=== PATIENT | female | born 1955 | race Caucasian/White ===

== ENCOUNTER 2022-10-18 13:14 | Emergency (ER) | payer OTHER, SELFPAY ==
--- NOTE | 2022-10-18 13:22 | ED.EAR ---
HPI - Ear Problem General Chief complaint: Ear Stated complaint: CLOGGED R EAR/CONGESITON/SINUS Time Seen by Provider: 10/18/22 13:56 Source: patient and RN notes reviewed Mode of arrival: ambulatory Limitations: no limitations History of Present Illness HPI Narrative: 67-year-old female presents concern for right ear fullness, feeling of it being clogged. She reports sinus congestion and drainage, cough. She reports she has been taking Mucinex DM. She reports history of having to have her ear flushed. She denies fever, aches, chills, sweats MD Complaint: ear pain Related Data Home Medications Medication Instructions Recorded Confirmed aspirin 81 mg tablet,delayed 81 mg PO DAILY 12/21/19 06/12/22 release loratadine 10 mg tablet (Claritin) 10 mg PO DAILY 12/21/19 06/12/22 Allergies Allergy/AdvReac Type Severity Reaction Status Date / Time No Known Allergies Allergy Verified 10/18/22 13:26 Review of Systems Review of Systems: CONSTITUTIONAL: Denies malaise, chills, sweats, or fever. EYES: Denies visual changes, redness, or discharge. ENT: Reports rhinorrhea, congestion. Denies sinus pain, and sore throat. Reports right ear pain CARDIOVASCULAR: Denies chest pain, palpitations, or edema. RESPIRATORY: Reports cough. Denies dyspnea. GASTROINTESTINAL: Denies abdominal pain, nausea, vomiting, diarrhea SKIN: Denies rash or itching. MUSCULOSKELETAL: Denies myalgia. NEUROLOGIC: Denies headache. All systems reviewed & are unremarkable except as noted in HPI and below PMFSH Past Medical History Medical History Essential hypertension History of colon polyps Hyperglycemia Hyperlipidemia Surgical History Surgical History History of appendectomy 1994 Hx of tonsillectomy 1963 Family History Family History Father Family history of cardiovascular disease Family history of Parkinson's disease Grandparent Cerebrovascular accident Mother Cerebrovascular accident Sibling Family history of malignant neoplasm Social History Social History Smoking status: Never smoker Second hand tobacco smoke exposure: No Alcohol intake: never Substance use: never Gender identity (if verbalized by the patient): Female Sexual Orientation (if Verbalized by the Patient): Straight or Heterosexual Spiritual care concerns: No Agree to blood products: Yes Comments At time of signature, agree with nursing past medical, surgical, social and family history. There is no relevant family history pertinent to the presenting complaint Exam Narrative: GENERAL: Well-appearing, well-nourished, and in no acute distress. HEAD: Normocephalic EYES: PERRLA, conjunctivae clear ENT: Nares clear, turbinates edematous, clear discharge. Mucous membranes moist. Left TM pearly moss with dull light reflex, right TM not visible due to excess cerumen; no tragal tenderness. Oropharynx not erythematous without lesions. Tonsils not enlarged and without exudate, no drooling, no hoarseness, no trismus, uvula midline. NECK: Supple. No lymphadenopathy CHEST: Clear to auscultation, breath sounds equal. No wheezing, rhonchi, rales, or stridor. No respiratory distress, speaks in full sentences. HEART: Regular rate and rhythm. No murmur heard. SKIN: Warm, dry, no rash. NEURO: Alert and oriented x3. PSYCH: Normal mood and affect Course Course Emergency Course: Patient is aware of diagnosis, understands and agrees to treatment plan. Anticipatory guidance given. Patient agrees to follow-up as directed and is aware of reasons to seek care at the emergency department. Portions of this record may have been created with voice recognition software Level of Care: Express Care Visit Vital Signs Vital signs: Review
[2022-10-18 13:29] VITALS: BP 168/78; PULSE 81; RESP 16; TEMP 37; O2SAT 99
== END 2022-10-18 14:08 | disposition home or self-care (01) ==
PROVIDERS: Emergency Provider Nurse Practitioner; PCP Family Medicine
DX: H61.21 Impacted cerumen, right ear (principal); Z79.82 Long term (current) use of aspirin; I10 Essential (primary) hypertension; E78.5 Hyperlipidemia, unspecified
CPT/HCPCS: 69210; 99212; G0463

== ENCOUNTER 2023-05-04 12:11 | Emergency (ER) | payer OTHER, SELFPAY ==
[2023-05-04 12:19] VITALS: BP 142/86; PULSE 75; RESP 16; TEMP 36.5; O2SAT 98
--- NOTE | 2023-05-04 12:33 | ED.URI ---
HPI - URI/Sore Throat General Chief Complaint: Upper Respiratory Infection Stated Complaint: sore throat,marlyn Time Seen by Provider: 05/04/23 12:27 Source: patient and RN notes reviewed Mode of arrival: ambulatory Limitations: no limitations History of Present Illness HPI Narrative: 67-year-old female presents concern for nasal congestion, postnasal drainage, sore throat. Reports she took Mucinex DM with some relief. Denies fever, aches, chills, sweats MD elicited complaint: cough and sore throat Related Data Home Medications Medication Instructions Recorded Confirmed aspirin 81 mg tablet,delayed 81 mg PO DAILY 12/21/19 05/04/23 release empagliflozin 10 mg tablet 10 mg PO DAILY 03/28/23 05/04/23 (Jardiance) Allergies Allergy/AdvReac Type Severity Reaction Status Date / Time No Known Allergies Allergy Verified 05/04/23 12:30 Review of Systems Review of Systems: CONSTITUTIONAL: Denies malaise, chills, sweats, or fever. EYES: Denies visual changes, redness, or discharge. ENT: Reports rhinorrhea, congestion, sore throat. Denies sinus pain, otalgia CARDIOVASCULAR: Denies chest pain, palpitations, or edema. RESPIRATORY: Reports mild cough. Denies dyspnea. GASTROINTESTINAL: Denies abdominal pain, nausea, vomiting, diarrhea SKIN: Denies rash or itching. MUSCULOSKELETAL: Denies myalgia. NEUROLOGIC: Denies headache. All systems reviewed & are unremarkable except as noted in HPI and below PMFSH Past Medical History Medical History (Updated 05/04/23 @ 12:34 by Lanny Arce NP) Chronic kidney disease Essential hypertension History of colon polyps Hyperglycemia Hyperlipidemia Mass in the abdomen Surgical History Surgical History History of appendectomy 1994 Hx of tonsillectomy 1963 Family History Family History Father Family history of cardiovascular disease Family history of Parkinson's disease Grandparent Cerebrovascular accident Mother Cerebrovascular accident Sibling Family history of malignant neoplasm Social History Social History Smoking status: Never smoker Second hand tobacco smoke exposure: No Alcohol intake: never Substance use: never Lack of Transportation: No Lack of Food: Never True Current Housing: I Have Housing Concerned About Future Housing: No Difficulty Paying Gas/Electric Bills: No Difficulty Paying for Meds: No Currently Unemployed: No Difficulty w/ Childcare or Family Care: No Living arrangements: with family Occupation/Education: retired Gender identity (if verbalized by the patient): Female Sexual Orientation (if Verbalized by the Patient): Straight or Heterosexual Spiritual care concerns: No Agree to blood products: Yes Comments At time of signature, agree with nursing past medical, surgical, social and family history. There is no relevant family history pertinent to the presenting complaint Exam Narrative: GENERAL: Well-appearing, well-nourished, and in no acute distress. HEAD: Normocephalic EYES: PERRLA, conjunctivae clear ENT: Nares clear, turbinates edematous and erythematous, clear discharge. Mucous membranes moist. TM pearly moss with dull light reflex bilaterally; no tragal tenderness. Oropharynx not erythematous without lesions. Tonsils not enlarged and without exudate, no drooling, no hoarseness, no trismus, uvula midline. NECK: Supple. No lymphadenopathy CHEST: Clear to auscultation, breath sounds equal. No wheezing, rhonchi, rales, or stridor. No respiratory distress, speaks in full sentences. HEART: Regular rate and rhythm. No murmur heard. SKIN: Warm, dry, no rash. NEURO: Alert and oriented x3. PSYCH: Normal mood and affect Course Course Emergency Course: Patient is aware of diagnosis, understands and agrees to treatment plan. Anti
== END 2023-05-04 12:37 | disposition home or self-care (01) ==
PROVIDERS: Emergency Provider Nurse Practitioner; PCP Family Medicine
DX: J06.9 Acute upper respiratory infection, unspecified (principal); I12.9 Hypertensive chronic kidney disease with stage 1 through stage 4 chronic kidney disease, or unspecified chronic kidney disease; N18.9 Chronic kidney disease, unspecified; E78.5 Hyperlipidemia, unspecified
CPT/HCPCS: 87081; 87880; 99213; G0463

== ENCOUNTER 2023-09-10 15:18 | Emergency (ER) | payer OTHER, SELFPAY ==
[2023-09-10 15:29] VITALS: BP 125/104; PULSE 95; RESP 16; TEMP 36.3; O2SAT 99
--- NOTE | 2023-09-10 15:42 | ED.URI ---
HPI - URI/Sore Throat General Chief Complaint: Upper Respiratory Infection Stated Complaint: SORE THROAT/COUGH/CONGESTION Time Seen by Provider: 09/10/23 15:42 History of Present Illness HPI Narrative: 60-year-old female presented for complaint of sinus congestion and cough for 3 days. She states she was around her grandkids who had similar symptoms. She denies shortness of breath, wheezing, sore throat, nausea vomiting, diarrhea fevers chills. She is taking Mucinex DM for symptoms. Related Data Home Medications Medication Instructions Recorded Confirmed aspirin 81 mg tablet,delayed 81 mg PO DAILY 12/21/19 09/10/23 release Allergies Allergy/AdvReac Type Severity Reaction Status Date / Time dapagliflozin [From [facility]] AdvReac Gastrointestinal Verified 09/10/23 15:42 Upset Review of Systems Review of Systems: CONSTITUTIONAL: Denies body aches, fever, chills, or sweats. EYES: Denies visual changes, redness, or discharge. ENT: reports rhinorrhea, congestion, denies sore throat or otalgia. CARDIOVASCULAR: Denies chest pain, palpitations, or edema. RESPIRATORY: Denies dyspnea. GASTROINTESTINAL: Denies abdominal pain, nausea, vomiting, or diarrhea. SKIN: Denies rash, itching, or wounds. MUSCULOSKELETAL: Denies back pain, joint pain, or myalgia. NEUROLOGIC: Denies headache PMFSH Past Medical History Medical History Chronic kidney disease Essential hypertension History of colon polyps Hyperglycemia Hyperlipidemia Mass in the abdomen Surgical History Surgical History History of appendectomy 1994 Hx of tonsillectomy 1963 Family History Family History Father Family history of cardiovascular disease Family history of Parkinson's disease Grandparent Cerebrovascular accident Mother Cerebrovascular accident Sibling Family history of malignant neoplasm Social History Social History Smoking status: Never smoker Second hand tobacco smoke exposure: No Alcohol intake: never Substance use: never Lack of Transportation: No Lack of Food: Never True Current Housing: I Have Housing Concerned About Future Housing: No Difficulty Paying Gas/Electric Bills: No Difficulty Paying for Meds: No Currently Unemployed: No Difficulty w/ Childcare or Family Care: No Living arrangements: with family Occupation/Education: retired Gender identity (if verbalized by the patient): Female Sexual Orientation (if Verbalized by the Patient): Straight or Heterosexual Spiritual care concerns: No Agree to blood products: Yes Exam Narrative: GENERAL: well-appearing, no acute distress. EYES: conjunctivae clear ENT: Mucous membranes moist. TMs pearly moss with normal light reflex bilaterally; no tragal tenderness. Oropharynx erythematous without lesions. Tonsils not enlarged and without exudate. No drooling, no hoarseness, no trismus, uvula midline. No tripod positioning, hot potato voice, or soft palate swelling. NECK: Supple. No lymphadenopathy CHEST: Clear to auscultation, breath sounds equal. No respiratory distress, speaks in full sentences. HEART: Regular rate and rhythm. No murmur heard. SKIN: Warm, dry, no rash. NEURO: Alert and oriented x3. Course Course Emergency Course: Patient is aware of diagnosis, understands and agrees to treatment plan. Anticipatory guidance given. Patient agrees to follow-up as directed and is aware of reasons to seek care at the emergency department. Portions of this record may have been created with voice recognition software Level of Care: Express Care Visit Vital Signs Vital signs: Vital Signs Temperature 97.3 F L 09/10/23 15:29 Pulse Rate 95 09/10/23 15:29 Respiratory Rate 16 09/10/23 15:29 Bl
== END 2023-09-10 15:55 | disposition home or self-care (01) ==
PROVIDERS: Emergency Provider Nurse Practitioner Family; PCP Physician Assistant Medical
DX: J06.9 Acute upper respiratory infection, unspecified (principal); E78.5 Hyperlipidemia, unspecified; I12.9 Hypertensive chronic kidney disease with stage 1 through stage 4 chronic kidney disease, or unspecified chronic kidney disease; N18.9 Chronic kidney disease, unspecified; Z79.82 Long term (current) use of aspirin
CPT/HCPCS: 99211; G0463

== ENCOUNTER 2023-11-26 08:00 | Outpatient (RCR) | payer OTHER, SELFPAY ==
--- NOTE | 2023-09-25 16:03 | PTOPEVAL1 ---
Assessment and note entered by Micheline Alonzo, PT Evaluation Information Assessment Status Evaluation Diagnosis pain in left shoulder Therapy condition stiffness left shoulder joint, abnormal posture Onset 2 years Subjective Information Has had grandkids for 11 years with youngest being 38 lbs Doesn't recall any injury, pain came on slowly. Doesn't do as much lifting as used to because of shoulder but still lifts items. Bothers her at night with sleeping on it and is a left side sleeper. Massage therapy seems to be very helpful for a week or so. Goes to the gym and doesn't lift as muc as used to , does water aerobics. Also retired in 2019 so doens't have to lift as much now. Reported Pain Level Pain Score 0: Self Report Assessment PT Clinical Summary Pt presents with pain in left shoulder, demos significantly decreased active ROM that is consistent with passive ROM, decreased capsualr mobility, decreased thoracic mobility, abnormal scapular alignment along with tight muscles. Pt will benefit from physical therapy to address deficits, reduce pain, and return to prior level of function. Plan of Care Interventions Electrical Stimulation,Hot Pack/Cold Pack,Manual Therapy,Neuro Re-education,Patient/Caregiver Educati,Therapeutic Activities,Therapeutic Exercise,Ultrasound PT Services Indicated Yes Treatment Frequency and 1-2x weekly x 8 weeks Duration These treatments will address the objective and functional deficits as defined above. The patient will be advanced safely and appropriately in order for the patient to progress towards his/her prior level of function. Additional exercises will be introduced and as well as a comprehensive home exercise program upon discharge, if needed, ?to ensure carryover of functional gains achieved in the clinic. This treatment plan has been reviewed and agreement upon by the patient.
--- NOTE | 2023-09-25 16:04 | OPREHPOC ---
Outpatient Therapy Plan of Care This is a Multidisciplinary Plan of Care that may contain components documented by all disciplines (PT, OT, and ST.) PT Problem 1 PT Problem #1 Knowledge Deficit PT Goal 1 Goal Pt will be independent in HEP Pt will verbalize understanding of diagnosis and prognosis Target Visit 8 PT Problem 2 PT Problem #2 Impaired Range of Motion PT Goal 1 Goal Pt will demo passive ROM left shoulder flexion 0- 130 Pt will demo external rotation passive ROM of 45 degrees or greater (scapular plane or abduction) Target Visit 8 PT Goal 2 Goal Pt will demo active ROM within 75% of the uneffected extremity in all planes Target Visit 16 PT Problem 3 PT Problem #3 Pain PT Goal 1 Goal Pt will report greatest pain level at 3/10 or less to improve sleep and ADLS Target Visit 8 PT Goal 2 Goal Pt will report resolution of pain to return to PLOF Target Visit 16
--- NOTE | 2023-10-01 08:09 | PCPTNOTE ---
Therapy department called patient to cancel appointment on 09/27/23 secondary to staffing shortage.
--- NOTE | 2023-10-11 15:53 | PCPTNOTE ---
Patient called & cancelled scheduled appointment this date due to illness
[2023-10-24 08:45] VITALS: BP_SYST 90
--- NOTE | 2023-10-24 10:04 | PTOPPROG ---
Assessment and note entered by Michelien Alonzo, PT Assessment Status Progress Diagnosis pain in left shoulder Onset 2 years Subjective Information Pt reports feeling 20% improved overall. States she can get her hand behind her head now Pt reports has not improved sleeping at night. In the shower can reach up higher on shower door than previously Used to ache all the time at different degrees but now doesn't ache all the time. Does try to be conscious of keeping her shoulders back more Assessment PT Clinical Summary Pt was unable to attend therapy approx 2 weeks right after evaluation during 4 weeks period, has only had 5 sessions which has limited her progress thus far. She has attended therapy more consistently the last two weeks however sows minimal objective improvement. Subjectively she reports is having less intense discomfort less often as well. Pt will continue to benefit from physical therapy to address ROM deficits and improve function. Plan of Care Interventions Electrical Stimulation,Hot Pack/Cold Pack,Manual Therapy,Neuro Re-education,Patient/Caregiver Educati,Therapeutic Activities,Therapeutic Exercise,Ultrasound PT Services Indicated Yes Treatment Frequency and 1-2x weekly x 4 weeks Duration These treatments will address the objective and functional deficits as defined above. The patient will be advanced safely and appropriately in order for the patient to progress towards his/her prior level of function. Additional exercises will be introduced and as well as a comprehensive home exercise program upon discharge, if needed, ?to ensure carryover of functional gains achieved in the clinic. This treatment plan has been reviewed and agreement upon by the patient.
--- NOTE | 2023-10-24 10:06 | PTOPPROG ---
Assessment and note entered by Micheline Alonzo, PT Evaluation Information Assessment Status Progress Diagnosis pain in left shoulder Therapy conditions abnormal posture, stiffness in joint left shoulder Onset 2 years Subjective Information Pt reports feeling 20% improved overall. States she can get her hand behind her head now Pt reports has not improved sleeping at night. In the shower can reach up higher on shower door than previously Used to ache all the time at different degrees but now doesn't ache all the time. Does try to be conscious of keeping her shoulders back more Assessment PT Clinical Summary Pt was unable to attend therapy approx 2 weeks right after evaluation during 4 weeks period, has only had 5 sessions which has limited her progress thus far. She has attended therapy more consistently the last two weeks however sows minimal objective improvement. Subjectively she reports is having less intense discomfort less often as well. Pt will continue to benefit from physical therapy to address ROM deficits and improve function. Plan of Care Interventions Electrical Stimulation,Hot Pack/Cold Pack,Manual Therapy,Neuro Re-education,Patient/Caregiver Educati,Therapeutic Activities,Therapeutic Exercise,Ultrasound PT Services Indicated Yes Treatment Frequency and 1-2x weekly x 4 weeks Duration These treatments will address the objective and functional deficits as defined above. The patient will be advanced safely and appropriately in order for the patient to progress towards his/her prior level of function. Additional exercises will be introduced and as well as a comprehensive home exercise program upon discharge, if needed, ?to ensure carryover of functional gains achieved in the clinic. This treatment plan has been reviewed and agreement upon by the patient.
[2023-11-26 08:05] VITALS: BP_SYST 90
--- NOTE | 2023-11-27 08:23 | PTOPDC ---
Assessment and note entered by Micheline Alonzo, PT Assessment Status Discharge Diagnosis pain in left shoulder Onset 2 years Subjective Information Pt reports overall has a noticeable improvement, feels 30% improved. Getting hand behind head and back, able to do her hair easier, able to put seat belt on easier, able to put coat on easier Definitely a decrease in aching. Sleeping at night is better. It's not her shoulder that is keeping her up. Reported Pain Level Pain Score 0: Self Report Assessment PT Clinical Summary Pt has attended therapy consistently for her left shoulder pain and stiffness. Pt has improved in her posture, and had made mild improvements in ROM . She reports she has greater ease with multiple activities and ADLs, as well as improvements in discomfort levels and resting. However she has not made significant enough progress to justify continued therapy. Pt was educated on options to further her progress including continuation of HEP independently as well as orthopedic referral. Unfortunately, due to low objective measurements and subjective reports of only 30% improvement, pt is being discharged due to lack of progress.
== END 2023-11-27 10:52 | disposition home or self-care (01) ==
LOC: ANHHIPT 08:00
PROVIDERS: PCP Physician Assistant Medical; Visit Provider Physician Assistant Medical
DX: M25.512 Pain in left shoulder (principal)
CPT/HCPCS: 97014; 97110; 97112; 97140; 97161; G0283